=== PATIENT | male | born 2000 | race Two or more races ===

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

== ENCOUNTER 2018-12-25 04:01 | Emergency (ER) | payer OTHER ==
[2018-12-25 04:21] VITALS: RESP 18
--- NOTE | 2018-12-25 04:24 | ED ---
Wound/Laceration HPI - General Chief Complaint: Wound/Laceration Stated Complaint: L Wrist Injury Time Seen by Provider: 12/25/18 04:23 Source: patient Mode of arrival: ambulatory Limitations: no limitations - History of Present Illness Initial Comments: is a 18-year-old gentleman who presents the emergency department today for evaluation of laceration to the left wrist. Patient reports that he was wrestling with his brother when he stood up in his left hand went through the window. Patient has multiple superficial scratches to the left anterior forearm. Patient states that he contacted his mother and she advised him that his last tetanus shot was when he was 9 or 10 years old. Patient denies other injury. - Related Data Home Medications Medication Instructions Recorded Confirmed lamoTRIgine [LaMICtal] 75 mg PO BID 07/10/17 12/15/17 traZODone HCL [Desyrel] 100 mg PO HS 07/10/17 12/15/17 Dextroamphetamine/Amphetamine 40 mg PO DAILY 12/15/17 12/15/17 [Adderall] Allergies Allergy/AdvReac Type Severity Reaction Status Date / Time No Known Allergies Allergy Verified 12/25/18 04:21 Review of Systems ROS Statement: Those systems with pertinent positive or pertinent negative responses have been documented in the HPI. ROS Other: All systems not noted in ROS Statement are negative. Past Medical History Past Medical History: No Reported History History of Any Multi-Drug Resistant Organisms: None Reported Past Surgical History: No Surgical Hx Reported Additional Past Surgical History / Comment(s): biopsy of right elbow Past Psychological History: ADD/ADHD, PTSD Smoking Status: Current every day smoker Past Alcohol Use History: Occasional Past Drug Use History: Marijuana General Exam - General Exam Comments Initial Comments: Physical Exam GENERAL: Patient is well-developed and well-nourished. HENT: Normocephalic, Atraumatic. EYES: PERRL, EOMI PULMONARY: Unlabored respirations CARDIOVASCULAR: RRR ABDOMEN: Nondistended SKIN: Superficial laceration and scratches on left anterior forearm consistent with accidental trauma There is 1 laceration on the lateral surface of the distal left wrist measuring approximately 1 cm that is through the dermis with visible underlying muscle, no visible tendon or vessels : Deferred NEUROLOGIC: Patient is alert and oriented x3. Moving all extremities spontaneously MUSCULOSKELETAL: Normal extremities with adequate strength and full range of motion. No lower extremity swelling or edema. No calf tenderness. Range of motion of wrist hand and fingers with normal strength, Normal flexion and extension of fingers Able to make okay sign and oppose thumb PSYCHIATRIC: Normal psychiatric evaluation. Limitations: no limitations Course Vital Signs 12/25/18 12/25/18 04:18 05:29 Temperature 97.5 F L 97.8 F Pulse Rate 75 82 Respiratory 18 18 Rate Blood Pressure 116/81 107/65 O2 Sat by Pulse 97 98 Oximetry Procedures - Laceration Laceration #1 Consent Obtained: verbal consent Indication: laceration Site: upper extremity Size (cm): 2 Description: linear Depth: simple, single layer Anesthetic Used: lidocaine 1% Anesthesia Technique: local infiltration Pre-repair: wound explored, deep structures intact Type of Sutures: nylon Size of Sutures: 4-0 Number of Sutures: 2 Technique: simple, interrupted Patient Tolerated Procedure: well, no complications Medical Decision Making - Medical Decision Making Patient was seen and evaluated history is obtained from patient and signed patient has multiple superficial lacerations as well as one approximately once a laceration that will require sutures patient's tetanus is not up-to-date therefore he will receive tetanus shot today Surgeon was repaired with 2 interrupted sutures patient tolerated procedure well, return parameters were discussed patient discharged home in stable condition Disposition Clinical Impression: Laceration Disposition: HOME SELF-CARE Condition: Stable Instructions (If sedation given, give patient instructions): Care For Your Stitches (DC) Additional Instructions: Follow-up in 5-7 days for suture removal Is patient prescribed a controlled substance at d/c from ED?: No Referrals: None,Stated [Primary Care Provider] - 1-2 days
[2018-12-25] MEDS ORDERED: LIDOCAINE 1% INJ 10MG/ML (20 ML MDV) SQ ONE (04:39)
[2018-12-25] MEDS ORDERED: DIPH,PERTUS(ACELL)TETVAC-LF 0.5 ML VIAL IM ONE (04:39)
[2018-12-25 05:30] VITALS: BP 107/65; PULSE 82; TEMP 97.8
== END 2018-12-25 05:19 | disposition home or self-care (01) ==
LOC: EC 04:01
DX: S61.512A Laceration without foreign body of left wrist, initial encounter (principal); S51.812A Laceration without foreign body of left forearm, initial encounter; F90.9 Attention-deficit hyperactivity disorder, unspecified type; F17.200 Nicotine dependence, unspecified, uncomplicated; Z79.899 Other long term (current) drug therapy; Z23 Encounter for immunization; W26.8XXA Contact with other sharp object(s), not elsewhere classified, initial encounter; Y93.72 Activity, wrestling; Y92.009 Unspecified place in unspecified non-institutional (private) residence as the place of occurrence of the external cause
CPT/HCPCS: 90715; 99282; 12001; 90471; J2001

== ENCOUNTER 2020-04-16 11:10 | Observation (INO) | payer OTHER ==
[2020-04-16] MEDS ORDERED: SODIUM CHLORIDE 0.9% 2,000 ML IV STA (11:20)
[2020-04-16 11:30] LABS: Glucose,Whole Blood 203 mg/dL (75-99)
[2020-04-16 11:59] LABS: Basophils % (A) 0 %; Eosinophils # (A) 0.1 k/uL (0-0.7); Eosinophils % (A) 2 %; HCT 46.9 % (39.0-53.0); HGB 15.9 gm/dL (13.0-17.5); Lymphocytes # (A) 2.8 k/uL (1.0-4.8); Lymphocytes % (A) 37 %; MCH 31.7 pg (25.0-35.0); MCHC 33.9 g/dL (31.0-37.0); MCV 93.5 fL (80.0-100.0); Mean Platelet Volume 7.4; Monocytes # (A) 0.5 k/uL (0-1.0); Monocytes % (A) 6 %; Neutrophils % (A) 53 %; Platelet Count 308 k/uL (150-450); RBC 5.02 m/uL (4.30-5.90); WBC 7.6 k/uL (3.8-10.6)
[2020-04-16 12:11] LABS: ALT 31 U/L (4-49); AST 32 U/L (17-59); Acetaminophen <10.0 ug/mL; African American GFR (CKD) >90 (>60 ml/min/1.73 sqM); Albumin 4.9 g/dL (3.5-5.0); Alcohol <10 mg/dL; Alkaline Phosphatase 69 U/L (38-126); Anion Gap 14 mmol/L; Blood Urea Nitrogen 15 mg/dL (9-20); Calcium 9.2 mg/dL (8.4-10.2); Carbon Dioxide 25 mmol/L (22-30); Chloride 100 mmol/L (98-107); Creatine Kinase 213 U/L (55-170); Glucose 215 mg/dL (74-99); Non-African American GFR(CKD) >90 (>60 ml/min/1.73 sqM); Potassium 3.9 mmol/L (3.5-5.1); Salicylate <1.0 mg/dL; Sodium 139 mmol/L (137-145)
--- NOTE | 2020-04-16 12:24 | XR ---
EXAMINATION TYPE: XR chest 2V DATE OF EXAM: 04/16/2020 COMPARISON: NONE HISTORY: Chest pain TECHNIQUE: Frontal and lateral views of the chest are obtained. FINDINGS: There is no focal air space opacity. No evidence for pneumothorax. No pleural effusion. The cardiac silhouette size is within normal limits. The osseous structures are grossly intact. IMPRESSION: 1. No acute cardiopulmonary process.
--- NOTE | 2020-04-16 12:32 | ED ---
Overdose HPI - General Chief Complaint: Overdose Stated Complaint: Overdose Time Seen by Provider: 04/16/20 11:15 Source: patient, EMS Mode of arrival: EMS - History of Present Illness Initial Comments: Patient is a 19-year-old male who presents to the emergency department after he overdosed on Xanax. EMS states that the patient was with his friends. He was taking Xanax early this morning. Reports that he took 4, 2 mg Xanax in an attempt to get high. He did go unresponsive. Friends threw water on him and began CPR. EMS arrived to the scene and found the patient breathing on his own with a pulse. They attempted to give him Narcan without improvement. Patient rates her facility arousable however groggy. States that he did take Xanax denies any other drug use. Admits that he took one shot of alcohol as well. Patient reports that he takes the medications to cope with being homeless. He was just released from [facility] yesterday. He denies any chest pain or shortness of breath. Denies being suicidal. No other alleviating, precipitating or modifying factors - Related Data Home Medications Medication Instructions Recorded Confirmed No Known Home Medications 04/16/20 04/16/20 Allergies Allergy/AdvReac Type Severity Reaction Status Date / Time fentanyl AdvReac Rash/Hives Verified 04/16/20 12:04 Review of Systems ROS Statement: Those systems with pertinent positive or pertinent negative responses have been documented in the HPI. ROS Other: All systems not noted in ROS Statement are negative. Past Medical History Past Medical History: No Reported History History of Any Multi-Drug Resistant Organisms: None Reported Past Surgical History: No Surgical Hx Reported Additional Past Surgical History / Comment(s): biopsy of right elbow Past Psychological History: ADD/ADHD, PTSD Past Alcohol Use History: Occasional Past Drug Use History: Marijuana General Exam Limitations: altered mental status General appearance: appears intoxicated Head exam: Present: atraumatic, normocephalic, normal inspection Eye exam: Present: normal appearance, EOMI. Absent: scleral icterus, conjunctival injection, periorbital swelling Pupils: Present: mydriatic ENT exam: Present: normal exam, mucous membranes moist Neck exam: Present: normal inspection. Absent: tenderness, meningismus, lymphadenopathy Respiratory exam: Present: normal lung sounds bilaterally. Absent: respiratory distress, wheezes, rales, rhonchi, stridor Cardiovascular Exam: Present: regular rate, normal rhythm, normal heart sounds. Absent: systolic murmur, diastolic murmur, rubs, gallop, clicks GI/Abdominal exam: Present: soft, normal bowel sounds. Absent: distended, tenderness, guarding, rebound, rigid Neurological exam: Present: altered Psychiatric exam: Present: depressed, flat affect Course Vital Signs 04/16/20 04/16/20 11:14 15:41 Temperature 97.4 F L 96.9 F L Pulse Rate 91 95 Respiratory 18 18 Rate Blood Pressure 114/58 129/74 O2 Sat by Pulse 92 L 98 Oximetry Medical Decision Making - Medical Decision Making Upon arrival patient is placed in room 17. A thorough history and physical exam is performed. IV is established the patient is given a 2 L bolus. Laboratory studies were conducted. Patient's toxicology positive for opiates, amphetamines, methamphetamines, benzodiazepines and marijuana. Chest x-ray d emonstrates no acute cardiopulmonary process. Poison control is called. They state that the patient needs 8-12 hours until he is medically clear. As the patient is reporting that he takes the medications in order to cope with his homelessness and depression I do feel that the patient will need psychiatric consultation. Mother does arrive to the emergency department and petitions the patient. Spoke with Dr. Lange who agreed to admit the patient. Patient awaiting a bed on the floor - Lab Data Result diagrams: 04/17/20 06:19 04/17/20 06:19 Lab Results 04/16/20 04/16/20 04/16/20 Range/Units 11:29 11:34 11:34 WBC 7.6 (3.8-10.6) k/uL RBC 5.02 (4.30-5.90) m/uL Hgb 15.9 (13.0-17.5) gm/dL Hct 46.9 (39.0-53.0) % MCV 93.5 (80.0-100.0) fL MCH 31.7 (25.0-35.0) pg MCHC 33.9 (31.0-37.0) g/dL RDW 13.0 (11.5-15.5) % Plt Count 308 (150-450) k/uL MPV 7.4 Neutrophils % 53 % Lymphocytes % 37 % Monocytes % 6 % Eosinophils % 2 % Basophils % 0 % Neutrophils # 4.0 (1.3-7.7) k/uL Lymphocytes # 2.8 (1.0-4.8) k/uL Monocytes # 0.5 (0-1.0) k/uL Eosinophils # 0.1 (0-0.7) k/uL Basophils # 0.0 (0-0.2) k/uL Sodium 139 (137-145) mmol/L Potassium 3.9 (3.5-5.1) mmol/L Chloride 100 (98-107) mmol/L Carbon Dioxide 25 (22-30) mmol/L Anion Gap 14 mmol/L BUN 15 (9-20) mg/dL Creatinine 0.98 (0.66-1.25) mg/dL Est GFR (CKD-EPI)AfAm >90 (>60 ml/min/1.73 sqM) Est GFR (CKD-EPI)NonAf >90 (>60 ml/min/1.73 sqM) Glucose 215 H (74-99) mg/dL POC Glucose (mg/dL) 203 H (75-99) mg/dL POC Glu Profile Grinder ID Casimiroa, II, Mariano Lactic Ac Sepsis Rflx Plasma Lactic Acid Wily (0.7-2.0) mmol/L Calcium 9.2 (8.4-10.2) mg/dL Total Bilirubin 1.0 (0.2-1.3) mg/dL AST 32 (17-59) U/L ALT 31 (4-49) U/L Alkaline Phosphatase 69 (38-126) U/L Creatine Kinase 213 H (55-170) U/L Troponin I (0.000-0.034) ng/mL Total Protein 8.0 (6.3-8.2) g/dL Albumin 4.9 (3.5-5.0) g/dL Salicylates <1.0 mg/dL Acetaminophen <10.0 ug/mL Serum Alcohol <10 mg/dL 04/16/20 04/16/20 04/16/20 Range/Units 11:34 11:34 12:11 WBC (3.8-10.6) k/uL RBC (4.30-5.90) m/uL Hgb (13.0-17.5) gm/dL Hct (39.0-53.0) % MCV (80.0-100.0) fL MCH (25.0-35.0) pg MCHC (31.0-37.0) g/dL RDW (11.5-15.5) % Plt Count (150-450) k/uL MPV Neutrophils % % Lymphocytes % % Monocytes % % Eosinophils % % Basophils % % Neutrophils # (1.3-7.7) k/uL Lymphocytes # (1.0-4.8) k/uL Monocytes # (0-1.0) k/uL Eosinophils # (0-0.7) k/uL Basophils # (0-0.2) k/uL Sodium (137-145) mmol/L Potassium (3.5-5.1) mmol/L Chloride (98-107) mmol/L Carbon Dioxide (22-30) mmol/L Anion Gap mmol/L BUN (9-20) mg/dL Creatinine (0.66-1.25) mg/dL Est GFR (CKD-EPI)AfAm (>60 ml/min/1.73 sqM) Est GFR (CKD-EPI)NonAf (>60 ml/min/1.73 sqM) Glucose (74-99) mg/dL POC Glucose (mg/dL) (75-99) mg/dL POC Glu Profile Grinder ID Lactic Ac Sepsis Rflx Y Plasma Lactic Acid Wily 2.8 H* (0.7-2.0) mmol/L Calcium (8.4-10.2) mg/dL Total Bilirubin (0.2-1.3) mg/dL AST (17-59) U/L ALT (4-49) U/L Alkaline Phosphatase (38-126) U/L Creatine Kinase (55-170) U/L Troponin I <0.012 (0.000-0.034) ng/mL Total Protein (6.3-8.2) g/dL Albumin (3.5-5.0) g/dL Salicylates mg/dL Acetaminophen ug/mL Serum Alcohol mg/dL - EKG Data EKG Comments: EKG demonstrates normal sinus rhythm with a ventricular rate of 87. [place] interval 160. QRS 82. QTC of 464. Hyperacute T waves in V2 through VID 6. No acute ST segment elevations Disposition Clinical Impression: Accidental drug overdose, Depression Disposition: ADMITTED IP TO THIS HOSP Condition: Stable Is patient prescribed a controlled substance at d/c from ED?: No Decision to Admit Reason: Admit from EC Decision Date: 04/16/20 Decision Time: 13:10
[2020-04-16] MEDS ORDERED: NALOXONE 0.4 MG/ML 1 ML VIAL IV PRN (13:10)
[2020-04-16] MEDS ORDERED: ACETAMINOPHEN TAB 325 MG TAB PO PRN (14:05)
[2020-04-16 14:09] LABS: Appearance,Urine Clear (Clear); Bilirubin,Urine Negative (Negative); Blood,Urine Negative (Negative); Color,Urine Yellow; Glucose,Urine (UA) Negative (Negative); Ketones,Urine Negative (Negative); Leukocyte Esterase,Urine Negative (Negative); Nitrite,Urine Negative (Negative); PH, Urine 6.5 (5.0-8.0); Protein,Urine Trace (Negative); Specific Gravity,Urine 1.014 (1.001-1.035); Urobilinogen,Urine <2.0 mg/dL (<2.0)
--- NOTE | 2020-04-16 14:09 | P.HPIM ---
History of Present Illness H&P Date: 04/16/20 This is a 19-year-old male with past medical history noted below who presented to the emergency room after he was found at home almost nonresponsive and CPR was started by his family. EMS arrived and the patient was awake and alert but slightly confused. He was given Narcan. He was brought into the emergency room. He was fully awake at the arrival in the emergency room. Per report, patient took 8 mg of Xanax earlier today as he was very depressed. Patient told me that he is homeless and his family is not willing to help with his situation. He denies any suicidal thoughts at this time. He was just released from detention yesterday. He does not take any prescription medication. He denies illicit drug use otherwise. Review of Systems Review of system: 14 points review of systems were obtained and were negative except to what were mentioned in the HPI. Past Medical History Past Medical History: No Reported History History of Any Multi-Drug Resistant Organisms: None Reported Past Surgical History: No Surgical Hx Reported Additional Past Surgical History / Comment(s): biopsy of right elbow Past Psychological History: ADD/ADHD, PTSD Past Alcohol Use History: Occasional Past Drug Use History: Marijuana Medications and Allergies Home Medications Medication Instructions Recorded Confirmed Type No Known Home Medications 04/16/20 04/16/20 History Allergies Allergy/AdvReac Type Severity Reaction Status Date / Time fentanyl AdvReac Rash/Hives Verified 04/16/20 12:04 Physical Exam Vitals: Vital Signs Temp Pulse Resp BP Pulse Ox 04/16/20 11:14 97.4 F L 91 18 114/58 92 L Intake and Output 04/15/20 04/16/20 04/16/20 22:59 06:59 14:59 Other: Weight 65.771 kg General: The patient is awake and alert, in no distress Eye: there is normal conjunctiva bilaterally. Neck: The neck is supple, there is no JVD. Cardiovascular: Normal S1-S2, no S3-S4, no murmurs. Respiratory: Lungs clear to auscultation bilaterally Gastrointestinal: Abdomen is soft, nontender Musculoskeletal: There is no pedal edema. Neurological:. Speech is normal. Skin: Skin is warm and dry Results CBC & Chem 7: 04/16/20 11:34 04/16/20 11:34 Labs: Abnormal Lab Results - Last 24 Hours (Table) 04/16/20 04/16/20 04/16/20 Range/Units 11:29 11:34 11:34 Glucose 215 H (74-99) mg/dL POC Glucose (mg/dL) 203 H (75-99) mg/dL Plasma Lactic Acid Wily 2.8 H* (0.7-2.0) mmol/L Creatine Kinase 213 H (55-170) U/L Assessment and Plan Assessment: 1. Benzodiazepine overdose, by taking a milligram of Xanax at once 2. Underlying depression with suicidal thoughts 3. History of tobacco and alcohol abuse: Now in remission Today, I reviewed his lab work results. Continue telemetry monitoring. Was uncontrolled recommended observation for 8-12 hours. Continue IV fluid hydration. Consult psychiatry. Continue suicide precautions.
[2020-04-16 14:33] LABS: Amphetamine Screen,Urine Detected (NotDetected); Barbiturate Screen,Urine Not Detected (NotDetected); Benzodiazepines Screen,Urine Detected (NotDetected); Cocaine Screen,Urine Not Detected (NotDetected); Methadone Screen, Urine Not Detected (NotDetected); Opiate Screen,Urine Detected (NotDetected); Oxycodone Screen, Urine Not Detected (NotDetected); Phencyclidine Screen,Urine Not Detected (NotDetected); Tricyclic Antidepressant,Urine Not Detected (NotDetected); Urn Cannabinoid Scrn Detected (NotDetected)
[2020-04-16] MEDS: SODIUM CHLORIDE 0.9% 1,000 ML IV SCH (14:37)
[2020-04-17] MEDS: SODIUM CHLORIDE 0.9% 1,000 ML IV SCH (03:59)
[2020-04-17 09:40] VITALS: BP 115/64; TEMP 97.9
[2020-04-17 10:42] VITALS: PULSE 99; RESP 15
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
--- NOTE | 2020-04-17 12:20 | P.DS ---
Providers Date of admission: 04/16/20 13:10 Expected date of discharge: 04/17/20 Attending physician: Cornelio Lange Consults: 04/16/20 13:11 Consult Physician Urgent Consulting Provider: Surya Gasca Consult Reason/Comments: depression, homeless, xanax overdose Do you want consulting provider notified?: Yes Primary care physician: Stated None Hospital Course: This is a 19-year-old male with past medical history noted below who presented to the emergency room after he was found at home almost nonresponsive and CPR was started by his family. EMS arrived and the patient was awake and alert but slightly confused. He was given Narcan. He was brought into the emergency room. He was fully awake at the arrival in the emergency room. Per report, patient took 8 mg of Xanax earlier today as he was very depressed. Patient told me that he is homeless and his family is not willing to help with his situation. He denies any suicidal thoughts at this time. He was just released from skilled nursing yesterday. He does not take any prescription medication. He denies illicit drug use otherwise. Patient was admitted to the hospital and he was seen and evaluated by psychiatry. He was found to be clear for discharge home. No inpatient psych hospitalization at this time. Follow closely outpatient. Counseled extensively regarding polysubstance abuse and important to stop. Patient will be discharged home in a stable condition. For further details about this hospitalization please refer to the electronic chart. Time spent on discharge > 30 minutes including counseling and coordination of care Patient Condition at Discharge: Stable Plan - Discharge Summary New Discharge Prescriptions: No Action No Known Home Medications Discharge Medication List No Known Home Medications 04/16/20 [History] Follow up Appointment(s)/Referral(s): None,Stated [Primary Care Provider] - 1-2 days Discharge Disposition: HOME SELF-CARE
[2020-04-17 13:49] LABS: Basophils # (A) 0.03 X 10*3/uL (0.00-0.10); Basophils % (A) 0.3 %; Eosinophils # (A) 0.31 X 10*3/uL (0.04-0.35); Eosinophils % (A) 3.2 %; HCT 39.9 % (39.6-50.0); HGB 13.6 g/dL (13.0-17.0); Lymphocytes # (A) 1.58 X 10*3/uL (0.90-5.00); Lymphocytes % (A) 16.5 %; MCHC 34.1 g/dL (32.0-37.0); MCV 93.9 fL (80.0-97.0); Mean Platelet Volume 10.6 fL (9.5-12.2); Monocytes # (A) 0.82 X 10*3/uL (0.20-1.00); Monocytes % (A) 8.6 %; Neutrophils % (A) 71.2 %; Platelet Count 264 X 10*3/uL (140-440); RBC 4.25 X 10*6/uL (4.40-5.60); RDW 12.2 % (11.5-14.5); WBC 9.56 X 10*3/uL (4.50-10.00)
[2020-04-17 14:27] LABS: Anion Gap 8.9 mmol/L (4.00-12.00); Calcium 8.4 mg/dL (8.7-10.3); Carbon Dioxide 25.1 mmol/L (21.6-31.8); Non-African American GFR(CKD) 127.7 (60.0-200.0); Potassium 4.3 mmol/L (3.5-5.5)
== END 2020-04-17 13:05 | disposition home or self-care (01) ==
LOC: EC 11:10 → 6NMEDSUR 13:10 → 5NMEDONC 15:55
PROVIDERS: ADMIT Internal Medicine; ATTEND Internal Medicine
DX: T42.4X4A Poisoning by benzodiazepines, undetermined, initial encounter (principal); F13.10 Sedative, hypnotic or anxiolytic abuse, uncomplicated; F12.10 Cannabis abuse, uncomplicated; F43.10 Post-traumatic stress disorder, unspecified; F90.9 Attention-deficit hyperactivity disorder, unspecified type; F32.9 Major depressive disorder, single episode, unspecified; F17.210 Nicotine dependence, cigarettes, uncomplicated; Z20.822 Contact with and (suspected) exposure to COVID-19; Z88.5 Allergy status to narcotic agent; Z98.890 Other specified postprocedural states; Z71.51 Drug abuse counseling and surveillance of drug abuser; Z81.8 Family history of other mental and behavioral disorders; Z81.1 Family history of alcohol abuse and dependence
CPT/HCPCS: 99285; 36415; 93005; 80053; 80048; 82550; 83605; 84484; 85025 ×2; 81003; 80306; 80143; 87635; 80179; 71046; G0378 ×3; G0480; 80320

== ENCOUNTER 2021-06-20 16:52 | Emergency (ER) | payer OTHER ==
[2021-06-20] MEDS ORDERED: LIDOCAINE 1% INJ 10MG/ML (20 ML MDV) SQ ONE (17:12)
--- NOTE | 2021-06-20 17:19 | ED ---
General Adult HPI - General Chief complaint: Skin/Abscess/Foreign Body Stated complaint: Ingrown Hair Time Seen by Provider: 06/20/21 17:05 Source: patient, RN notes reviewed, old records reviewed Mode of arrival: ambulatory Limitations: no limitations - History of Present Illness Initial comments: 21-year-old male presents ambulatory with complaints of ingrown hairs to bilateral groins with drainage for one week. Patient states he thinks it's from shaving. He denies any fevers, no nausea, vomiting or diarrhea. Patient states he smokes marijuana but denies any IV drug use. He states he has a history of MRSA. -: week(s) (1) Location: pelvis (Bilateral groin) Quality: constant Consistency: constant Improves with: none Associated Symptoms: denies other symptoms Treatments Prior to Arrival: none - Related Data Previous Rx's Medication Instructions Recorded Cephalexin [Keflex] 500 mg PO Q6HR 7 Days #28 cap 06/20/21 Sulfamethox-Tmp 800-160Mg [Bactrim 1 each PO Q12HR 5 Days #10 tab 06/20/21 Ds] Allergies Allergy/AdvReac Type Severity Reaction Status Date / Time fentanyl AdvReac Rash/Hives Verified 06/20/21 17:00 Review of Systems ROS Statement: Those systems with pertinent positive or pertinent negative responses have been documented in the HPI. ROS Other: All systems not noted in ROS Statement are negative. Past Medical History Past Medical History: No Reported History History of Any Multi-Drug Resistant Organisms: None Reported Past Surgical History: No Surgical Hx Reported Additional Past Surgical History / Comment(s): biopsy of right elbow Past Anesthesia/Blood Transfusion Reactions: No Reported Reaction, Postoperative Nausea & Vomiting (PONV) Past Psychological History: ADD/ADHD, PTSD Smoking Status: Current every day smoker Past Alcohol Use History: Occasional Past Drug Use History: Marijuana General Exam Limitations: no limitations General appearance: alert, in no apparent distress Head exam: Present: atraumatic Eye exam: Present: normal appearance Respiratory exam: Absent: respiratory distress, accessory muscle use Cardiovascular Exam: Present: tachycardia GI/Abdominal exam: Present: soft. Absent: distended, tenderness exam: Present: circumcision. Absent: testicular tenderness, urethral discharge, scrotal swelling External exam: Present: erythema (6 cm x 7 cm right groin; 4 x 5 cm left groin), swelling, lesions Extremities exam: Present: normal capillary refill Neurological exam: Present: alert, oriented X3, normal gait Psychiatric exam: Present: normal affect, normal mood Skin exam: Present: warm, dry, normal color, erythema (3 abscesses to groin with induration open and draining). Absent: cyanosis, diaphoretic Course Vital Signs 06/20/21 16:58 Temperature 98.9 F Pulse Rate 103 H Respiratory 20 Rate Blood Pressure 111/70 O2 Sat by Pulse 97 Oximetry Procedures - Incision & Drainage Consent Obtained: verbal consent (1cm laceration for I&D to both groins with copious green/yellow purulent drainage) Site: other (left groin; right groin) Anesthetic Used: lidocaine 1% I&D Cleaning Method: Betadine Sterile Field Used?: Yes Scalpel Used: #11 Needle Aspiration Performed?: No Irrigation Performed?: No I&D Drainage Obtained: Pus, Blood Culture Obtained?: Yes Medical Decision Making - Medical Decision Making Patient presents with multiple inguinal abscesses with surrounding cellulitis. Abscesses were draining upon arrival however a larger incision was made to promote drainage. Right groin with surrounding cellulitis and induration. Patient has a history of MRSA and was placed on antibiotics for cellulitis. Instructed to soak and sitz baths three times a day and return if any complications. Patient and father are agreeable to this plan of care. Case discussed with Dr. 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 Return to the emergency room with any new or concerning symptoms including increased pain, swelling or fevers. Prescriptions: Sulfamethox-Tmp 800-160Mg [Bactrim Ds] 1 each PO Q12HR 5 Days #10 tab Cephalexin [Keflex] 500 mg PO Q6HR 7 Days #28 cap Is patient prescribed a controlled substance at d/c from ED?: No Referrals: None,Stated [Primary Care Provider] - 1-2 days Time of Disposition: 17:57
[2021-06-20] MEDS ORDERED: CEPHALEXIN 500 MG CAP PO STA (17:31)
[2021-06-20] MEDS ORDERED: SULFAMETHOX-TMP 800-160MG 1 EACH TAB PO STA (17:32)
[2021-06-20] MEDS ORDERED: BACITRACIN OINT 1 EACH PACKET TOPICAL ONE (17:57)
[2021-06-20 18:15] VITALS: BP 118/66; PULSE 94; RESP 18; TEMP 98.4
== END 2021-06-20 18:15 | disposition home or self-care (01) ==
LOC: EC 16:52
DX: L02.214 Cutaneous abscess of groin (principal); L03.314 Cellulitis of groin; F90.9 Attention-deficit hyperactivity disorder, unspecified type; F43.10 Post-traumatic stress disorder, unspecified; F17.200 Nicotine dependence, unspecified, uncomplicated; F12.90 Cannabis use, unspecified, uncomplicated
CPT/HCPCS: 99283; 10060; 87070; 87205; J2001; 87077; 87186